=== PATIENT | male | born 1930 | race Caucasian/White ===

== ENCOUNTER → 2017-01-30 | Outpatient (CLI) | payer MEDICARE ==
[2015-09-09 11:06] VITALS: BP 156/58
[~2017-01-30] MED LIST: ACID1TAB14 PO; ASPI81TA2 PO; BUDE0.5A NEB; CHOL200027 PO; DOCU-27 PO; Enoxaparin Sodium SQ; GABA-586 PO; Guaifenesin/Dextromethorphan PO; HYDR-2762 PO; HYDR50TA6 PO; Ipratropium/Albuterol Sulfate NEB; PANT40TA3 PO; POTA10CA PO; PROAIR HFA8.5 GM INH; SOTA80TA PO; TEMA15CA PO; THIA100T4 PO; TOLT2CAP7 PO; VITA400C36 PO; [UNRECOGNIZED DRUG - CODE] PO
[2017-01-30 15:05] LABS: CREATININE 1.1 mg/dL (0.7-1.3); GFR 63.3
== END | disposition home or self-care (01) ==
LOC: LAB 14:06
PROVIDERS: ATTEND Psychiatry & Neurology Neurology
DX: G60.8 Other hereditary and idiopathic neuropathies (principal); R26.81 Unsteadiness on feet
CPT/HCPCS: 36415; 82550; 82565; 82607; 84520

== ENCOUNTER → 2017-02-02 | Outpatient (CLI) | payer MEDICARE ==
[2015-09-09 11:06] VITALS: BP 156/58
--- NOTE | 2017-02-02 16:02 | RAD ---
CT cervical spine without contrast History: Gait instability. Comparison: Cervical spine radiographs 07/29/2013. Technique: Noncontrast helical CT of the cervical spine was performed from the skull base through the mid T2 level. Axial, sagittal, and coronal reconstructions were obtained. One or more of the following individualized dose reduction techniques were utilized for the study: Automated exposure control Adjustment of mA and/or kV according to patient's size Use of iterative reconstruction technique. Findings: Evaluation of spinal contents is limited secondary to lack of intrathecal contrast. Laminectomy changes are seen from C3 through C6. These levels also demonstrate bilateral posterior screws and bilateral bridging vertical bars. No hardware complication is identified. No acute fracture or acute malalignment is seen. No prevertebral soft tissue swelling is identified. There is mild dextroconvex scoliosis of the cervical spine. Lung apices demonstrate right greater than left parenchymal scarring. Emphysematous changes can be seen involving both lungs. Portions of pacemaker are seen in the left upper chest. There is a large amount of a partially calcified pannus formation adjacent to the dens. C2-3 level demonstrates left greater than right facet hypertrophy. Posterior disc osteophyte complex is seen. Anterior disc osteophyte is present. There is moderate left and mild right neural foraminal narrowing. There is evidence of mild spinal canal narrowing. C3-4 level demonstrates a posterior disc osteophyte complex. Anterior disc osteophyte is seen. There is bilateral facet hypertrophy. Moderate bilateral neural foraminal narrowing is seen. Secondary to laminectomy, no spinal canal stenosis is identified. C4-5 level demonstrates posterior disc osteophyte complex asymmetric to the left. Anterior disc osteophyte is also seen. Bilateral facet hypertrophy is seen. Mild bilateral neural foraminal narrowing is present. Secondary to laminectomy, no spinal canal stenosis is identified. C5-6 level demonstrates posterior disc osteophyte complex. There is advanced bilateral facet hypertrophy. There is moderate bilateral neural foraminal narrowing. Secondary to laminectomy, no spinal canal stenosis is identified. C6-7 level demonstrates posterior disc osteophyte complex. Bilateral facet hypertrophy is seen. Mild-moderate bilateral neural foraminal narrowing is present. Secondary to laminectomy, no spinal canal stenosis is identified. C7-T1 level demonstrates left uncovertebral hypertrophy. There is bilateral facet hypertrophy. No significant neural foraminal narrowing is appreciated. No spinal canal narrowing is seen. Impression: 1. Postsurgical changes from C3 through C6. 2. Advanced multilevel degeneration as described above.
== END | disposition home or self-care (01) ==
LOC: CT 12:30
PROVIDERS: ATTEND Psychiatry & Neurology Neurology
DX: R26.81 Unsteadiness on feet (principal)
CPT/HCPCS: 72125